=== PATIENT | female | born 1955 ===

== ENCOUNTER 2024-05-13 23:38 | Emergency (ER) | payer OTHER ==
[~2024-05-13] VITALS: Ht 154.9 cm; Wt 54.4 kg
[~2024-05-13 23:38] MED LIST: DELTASONE20 MG PO; GUAI600T33 PO; IPRAT-ALBUT 0.5-3 ML INH; LEVOFLOXACIN750 MG PO; LOSA50 PO; OMEP20ER PO; TRAZ50 PO; TRELEGY ELLIPT1 EAC1 INH; Ventolin/Prove6.7 GM INH
[2024-05-13] MEDS ORDERED: LOSA25 PO (23:56)
[2024-05-14 00:01] LABS: BASOPHILS ABSOLUTE AUTO 0.09 K/mm3 (0.00-0.23); BASOPHILS PERCENT AUTO 1 % (0-2); EOSINOPHILS ABSOLUTE AUTO 0.11 K/mm3 (0.00-0.68); EOSINOPHILS PERCENT AUTO 1 % (0-6); Hematocrit 43.2 % (33.0-51.0); Hemoglobin 14.6 g/dL (11.5-16.0); IMMATURE GRAN ABSOLUTE AUTO 0.02 K/mm3 (0.00-0.10); IMMATURE GRAN PERCENT AUTO 0 % (0-1); LYMPHOCYTES ABSOLUTE AUTO 2.78 K/mm3 (0.84-5.20); LYMPHOCYTES PERCENT AUTO 34 % (21-46); MONOCYTES ABSOLUTE AUTO 0.57 K/mm3 (0.16-1.47); MONOCYTES PERCENT AUTO 7 % (4-13); Mean Corpuscular HGB 32.2 pg (26.0-34.0); Mean Corpuscular HGB Conc 33.8 g/dL (31.5-36.5); Mean Corpuscular Volume 95 fL (80-100); Mean Platelet Volume 9.8 fL (9.1-12.4); NEUTROPHILS ABSOLUTE AUTO 4.53 K/mm3 (1.96-9.15); NEUTROPHILS PERCENT AUTO 56 % (41-73); Platelet Count 239 K/mm3 (150-400); RDW Coefficient Variation 12.8 % (11.7-14.2); RDW Standard Deviation 44.9 fL (35.1-46.3); Red Blood Cell Count 4.53 M/mm3 (3.80-5.20)
[2024-05-14 00:17] LABS: Albumin, Blood 3.6 g/dL (3.4-5.0); Bilirubin, Total 0.4 mg/dL (0.1-1.0); Bun/Creatinine Ratio 14.5 (12.0-20.0); Calcium, Blood 8.6 mg/dL (8.5-10.1); Creatinine, Blood 0.76 mg/dL (0.40-1.00); Globulin, Blood 3.5 g/dL (2.2-4.0); Total Protein, Blood 7.1 g/dL (6.4-8.2)
[2024-05-14] MEDS ORDERED: Magnesium Sulf 2 GM/Water 50ML 50 ML IV ONE (00:40)
[2024-05-14] MEDS ORDERED: Ipratropium/Albuterol SulF 2.5-0.5MG/3 ML Amp INH ONE (00:40)
[2024-05-14] MEDS ORDERED: PredniSONE 20 MG Tab PO ONE (00:40)
[2024-05-14] MEDS ORDERED: Albuterol 2.5 MG/3 ML VIAL INH SCH (00:40)
[2024-05-14] MEDS ORDERED: Ketorolac Tromethamine 30mg Vial IV ONE (00:40)
[2024-05-14] MEDS ORDERED: Doxycycline Hyclate 100 MG TAB PO ONE (00:40)
[2024-05-14 02:00] VITALS: BP 125/79
[2024-05-14] MEDS ORDERED: PRED20 PO (02:18)
[2024-05-14] MEDS ORDERED: DOXY100 PO (02:18)
== END 2024-05-14 02:30 | disposition home or self-care (01) ==
LOC: ER 23:38
PROVIDERS: Student in an Organized Health Care Education/Training Program
DX: J44.1 Chronic obstructive pulmonary disease with (acute) exacerbation (principal); R07.89 Other chest pain; Z87.891 Personal history of nicotine dependence; I10 Essential (primary) hypertension; K21.9 Gastro-esophageal reflux disease without esophagitis; G47.00 Insomnia, unspecified; Z79.899 Other long term (current) drug therapy; Z88.0 Allergy status to penicillin; Z88.1 Allergy status to other antibiotic agents; Z88.6 Allergy status to analgesic agent
CPT/HCPCS: 71046; 80053; 83605; 84484; 85025; 93005; 93010; 94644; 94664; 96365; 96375; 99285-25; A9270; J1885; J3475; J7512

== ENCOUNTER 2025-01-18 09:41 | Day surgery (SDC) | payer OTHER ==
[~2025-01-18] VITALS: Ht 152.4 cm; Wt 54.6 kg
[~2025-01-18 09:41] MED LIST changes: +DOXY100 PO; +LOSA25 PO; +Lactated Ringer's 1,000 ML IV ONE; +PRED20 PO
[2025-01-18] MEDS ORDERED: AZIT250 (10:34)
[2025-01-18] MEDS ORDERED: OMEP20ER (10:34)
[2025-01-18] MEDS ORDERED: NICODERM CQ1 EA25 (10:35)
[2025-01-18] MEDS ORDERED: ESCI10 (10:35)
[2025-01-18] MEDS ORDERED: Lactated Ringer's 1,000 ML IV ONE (10:49)
[2025-01-18] MEDS ORDERED: Benzocaine Oral Spray 0.5ML UD ONE (10:57)
[2025-01-18] MEDS ORDERED: propofoL 50 ML IV ONE (11:13)
[2025-01-18 12:18] VITALS: BP 115/74
--- NOTE | 2025-01-18 12:23 | NUR ---
01/18/25 1223 Beatriz Durham S PT. WITH EXP. WHEEZES. PT. VERBALIZES SHE GETS WHEEZES. PT. USES HOME O2 FOR ASTHMA/COPD AT 2L/NC. PT. SATS 100 ON 2L/NC. PT. DENIES SOB.
== END 2025-01-18 12:02 | disposition home or self-care (01) ==
LOC: ORSCSDS 09:41
PROVIDERS: Specialist
PROC: 0DB58ZX Excision of Esophagus, Via Natural or Artificial Opening Endoscopic, Diagnostic (ICD-10-PCS; principal; 2025-01-18 11:15)
PROC: 0DB68ZX Excision of Stomach, Via Natural or Artificial Opening Endoscopic, Diagnostic (ICD-10-PCS; principal; 2025-01-18 11:15)
DX: R93.3 Abnormal findings on diagnostic imaging of other parts of digestive tract (principal); K22.70 Barrett's esophagus without dysplasia; K44.9 Diaphragmatic hernia without obstruction or gangrene; K21.9 Gastro-esophageal reflux disease without esophagitis; I10 Essential (primary) hypertension; J44.9 Chronic obstructive pulmonary disease, unspecified; G47.33 Obstructive sleep apnea (adult) (pediatric); F41.9 Anxiety disorder, unspecified; F32.A Depression, unspecified; F17.210 Nicotine dependence, cigarettes, uncomplicated; Z79.899 Other long term (current) drug therapy
CPT/HCPCS: 88305; 88342; A9270; J2704; J7120